=== PATIENT | male | born 1945 | race Caucasian/White ===

== ENCOUNTER → 2017-06-24 | Outpatient (CLI) | payer MEDICARE ==
[~2017-06-24] MED LIST: MEGA RED PO; METO25TA35 PO; MULT-658 PO; OMEP-110 PO; SAW/1TAB2 PO
== END | disposition home or self-care (01) ==
LOC: STAR 10:35
PROVIDERS: ATTEND Orthopaedic Surgery
DX: Z01.818 Encounter for other preprocedural examination (principal); M75.111 Incomplete rotator cuff tear or rupture of right shoulder, not specified as traumatic; S43.431A Superior glenoid labrum lesion of right shoulder, initial encounter
CPT/HCPCS: 93005

== ENCOUNTER 2017-07-06 11:40 | Day surgery (SDC) | payer MEDICARE ==
[2017-06-24 11:15] VITALS: BP 180/88
[~2017-07-06] VITALS: Ht 182.9 cm; Wt 85.8 kg
[2017-07-06] MEDS ORDERED: MIDAZOLAM 1 MG/ML, 2ML ONE ×2 (11:56→12:03)
[2017-07-06] MEDS ORDERED: FENTANYL PF 100 MCG/2ML ONE (11:56)
[2017-07-06] MEDS ORDERED: ONDANSETRON ODT 8 MG ONE (12:20)
[2017-07-06] MEDS ORDERED: ONDANSETRON ODT 8 MG PO PRN (12:30)
[2017-07-06] MEDS ORDERED: EPINEPHRINE 1 MG/ML, 1ML ONE (12:31)
[2017-07-06] MEDS ORDERED: LIDOCAINE/PF 1%, 30ML ONE (12:31)
[2017-07-06] MEDS ORDERED: LACTATED RINGERS 1,000 ML ONE (12:44)
[2017-07-06] MEDS ORDERED: ROCURONIUM 10 MG/ML,10ML ONE (12:44)
[2017-07-06] MEDS ORDERED: DEXAMETHASONE 4 MG/ML, 1ML ONE (12:44)
[2017-07-06] MEDS ORDERED: LACTATED RINGERS 1,000 ML IV SCH (13:00)
[2017-07-06] MEDS ORDERED: ACETAMINOPHEN 500 MG TABLET PO ONE (13:00)
[2017-07-06] MEDS ORDERED: GABAPENTIN 300 MG CAPSULE PO SCH (13:00)
[2017-07-06] MEDS ORDERED: PROMETHAZINE 25 MG/ML, 1ML IV PRN (13:30)
[2017-07-06] MEDS ORDERED: PROMETHAZINE 25 MG SUPP PR PRN (13:30)
[2017-07-06] MEDS ORDERED: HYDROmorphone 1 MG/ML, 1ML IV PRN (13:30)
[2017-07-06] MEDS ORDERED: LORazepam 2 MG/ML, 1ML IVPush PRN (13:30)
[2017-07-06] MEDS ORDERED: MEPERIDINE/PF 25MG/0.5ML IVPush PRN (13:30)
[2017-07-06] MEDS ORDERED: FENTANYL PF 100 MCG/2ML IV PRN (13:30)
[2017-07-06] MEDS ORDERED: MORPHINE SULFATE 4 MG/ML, 1ML IVPush PRN (13:30)
[2017-07-06] MEDS ORDERED: ALBUTEROL SULFATE 2.5 MG/3 ML NPPB PRN (13:30)
[2017-07-06] MEDS ORDERED: SUGAMMADEX 200 MG/2 ML IVPush ONE (13:30)
[2017-07-06] MEDS ORDERED: OXYcodone 5 MG/5 ML ORAL.SOL UDC PO PRN (13:30)
[2017-07-06] MEDS ORDERED: LABETALOL 5MG/ML, 20ML IV PRN (13:30)
[2017-07-06] MEDS ORDERED: PROMETHAZINE 25 MG/ML, 1ML IM PRN ×2 (13:30)
[2017-07-06] MEDS ORDERED: hydrALAzine 20 MG/ML, 1ML IV PRN (13:30)
[2017-07-06] MEDS ORDERED: PROMETHAZINE 12.5 MG SUPP PR PRN (13:30)
== END 2017-07-06 15:15 ==
LOC: OUT 11:40
PROVIDERS: ATTEND Orthopaedic Surgery
DX: M65.811 Other synovitis and tenosynovitis, right shoulder (principal); M24.011 Loose body in right shoulder; M75.41 Impingement syndrome of right shoulder; M75.51 Bursitis of right shoulder; M66.811 Spontaneous rupture of other tendons, right shoulder; K21.9 Gastro-esophageal reflux disease without esophagitis; I48.91 Unspecified atrial fibrillation
CPT/HCPCS: 29823; 29826; 64415; J0171; J1100; J2250; J3010; J3490; J7120; Q0162